=== PATIENT | male | born 1985 | race Caucasian/White ===

== ENCOUNTER 2020-03-10 19:42 | Emergency (ER) | payer BC, SELFPAY ==
[2020-03-10 19:53] VITALS: BP 146/96; PULSE 112; RESP 16; TEMP 36.9; O2SAT 99; BMI 46.1
--- NOTE | 2020-03-10 19:57 | XR_ITS ---
PROCEDURE: XR HAND RT MIN 3V CLINICAL INDICATION: FINGER INJURY Posttraumatic pain, laceration COMPARISON: No exams were available for comparison FINDINGS: Comminuted fracture involves the distal aspect of the distal phalanx of the 2nd finger. There is mild ulnar displacement of the distal fracture fragment. Soft tissue laceration is noted as well. IMPRESSION: Mildly displaced open comminuted fracture distal phalanx of the 2nd finger Dictated by: Warren Everett MD 03/10/2020 20:50 Electronically signed by Warren Everett MD in [place] 03/10/2020 20:50
--- NOTE | 2020-03-10 20:57 | HMH.EDWNDL ---
ED Disposition Clinical Impression: Laceration Open fracture of finger of right hand Qualifiers: Encounter type: initial encounter Finger: index finger Phalanx: distal Fracture alignment: nondisplaced Qualified Code(s): S62.660B - Nondisplaced fracture of distal phalanx of right index finger, initial encounter for open fracture Disposition: Home, Self-Care Condition on Discharge: Good Instructions: DI for Laceration Repair Additional Instructions: call dr martinez in am Prescriptions: cephALEXin [Keflex 500mg Cap] 500 mg PO TID #30 cap Transmission Status: Pending to [facility] #[id number] Referrals: Provider,MD Mayra [Primary Care Provider] - Yadira Martinez MD [Physician] - - Critical Care Critical Care Time: No Attestation: On 03/10/20, the high probability of a clinically significant, sudden or life threatening deterioration of the following system(s) required my full and direct attention, intervention and personal management. The time I documented below is in addition to time spent performing reported procedures but includes the following listed in this critical care notation. Medical Decision Making - Neo Inquiry Pt receiving controlled substance: No Vital Signs: 03/10/20 19:53 Temperature 98.5 F Temperature Source Oral Pulse Rate [Left Brachial] 112 H Respiratory Rate 16 Blood Pressure [Left Arm] 146/96 H Blood Pressure Mean [Left Arm] 112 Blood Pressure Source [Left Arm] Automatic Cuff Blood Pressure Position [Left Arm] Sitting 02 Sat by Pulse Oximetry 99 Oxygen Delivery Method Room Air Orders (Tests/Meds): ED MEDICATIONS Discontinued Medications Generic Name Dose Route Start Last Admin Trade Name Freq PRN Reason Stop Dose Admin Tetanus/Reduced Diphtheria/Acell Pertussis 0.5 ml 03/10/20 19:58 03/10/20 20:30 Adacel Tdap 0.5ml Syringe IM 03/10/20 19:59 0.5 ml .ONCE ONE Administration - Radiology Data #1 Image(s): Hand Image Reviewed: Yes I reviewed the patient's radiology image Preliminary Findings: Abnormal (fx seen) - Physician Consults Physician Consulted: lucy Reason -: Pt condition Wound/Laceration HPI - General Chief Complaint: Wound/Laceration Stated Complaint: AO [id number]@1900 lect to R hand Index Finger Time Seen by Provider: 03/10/20 20:00 Mode of Arrival: Ambulatory Source of Information: Patient, Medical Record Limitations: No Limitations Description of Symptoms (Recalled from ER Triage Doc. by RN): PATIENT REPORTS HE WAS TRIMMING BUSHES WHEN THE TRIMMERS KICKED BACK AND CUT HIS RIGHT POINTER FINGER. - History of Present Illness HPI narrative: distal rt index finger lac at home - no other c/o Onset (ago): hour(s) Extremity Location: Right: hand Place: home Patient tetanus UTD: No Context: sharp object use Associated symptoms: none - Related Data Previous Rx's Medication Instructions Recorded Ketorolac Tromethamine [Toradol 10 mg PO Q4H 5 Days #30 tab 02/06/20 10mg tablet] cephALEXin [Keflex 500mg Cap] 500 mg PO TID #30 cap 03/10/20 Allergies Allergy/AdvReac Type Severity Reaction Status Date / Time acetaminophen [From Lortab] Allergy Verified 02/06/20 18:11 hydrocodone [From Lortab] Allergy Verified 02/06/20 18:[address] [facility] History - Hepatitis A Screen Drug use history?: No High risk sexual behaviors?: No History of sexually transmitted infection?: No Currently employed?: No Childcare worker?: No Do you have indoor plumbing?: Yes Do you have electricity?: Yes Attestation statement:: This patient has been screened for Hepatitis A risk factors. I have reviewed the patient's past medical history: Yes - Social History Alcohol Intake: never Occupational Status: employed ROS Obtained: Yes All systems reviewed & no additional complaints - Constitutional Constitutional: Denies fever(s) - Eyes Eyes: Denies change in vision - ENT Ears, Nose, Mouth, and Throat: Denies sore t
[2020-03-10 21:39] VITALS: BP 140/89; PULSE 98; RESP 16; TEMP 36.9; O2SAT 99
== END 2020-03-10 21:43 | disposition home or self-care (01) ==
PROVIDERS: Emergency Provider Emergency Medicine
DX: S61.210A Laceration without foreign body of right index finger without damage to nail, initial encounter (principal); S62.660B Nondisplaced fracture of distal phalanx of right index finger, initial encounter for open fracture; W31.89XA Contact with other specified machinery, initial encounter; Y92.017 Garden or yard in single-family (private) house as the place of occurrence of the external cause; Z23 Encounter for immunization; Z88.5 Allergy status to narcotic agent
CPT/HCPCS: 12001; 73130; 90471; 90715; 99282

== ENCOUNTER → 2020-03-14 06:37 | Outpatient (CLI) | payer BC, SELFPAY ==
[2020-03-16 06:53] LABS: Covid-19 Nasal PCR Sendout Lex NOT DETECTED
== END ==
LOC: LAB 06:39
PROVIDERS: PCP Family Medicine; Visit Provider Orthopaedic Surgery
DX: S62.660B Nondisplaced fracture of distal phalanx of right index finger, initial encounter for open fracture (principal); Z03.818 Encounter for observation for suspected exposure to other biological agents ruled out
CPT/HCPCS: J2704; U0004

== ENCOUNTER 2020-03-16 06:54 | Day surgery (SDC) | payer BC, SELFPAY ==
[2020-03-14 06:36] VITALS: BMI 46.1
--- NOTE | 2020-03-14 06:39 | SUR.PREOP ---
Pt arrived Saturday morning at 6am for surgery. Pt was informed by Flash that surgery is scheduled for Saturday the . We called COVID nurse to set up his COVID swab testing and pt was registered and lab called for swab. Pt in preop waiting for lab to do swab
[2020-03-16 07:15] VITALS: BP 143/87; PULSE 83; RESP 18; TEMP 37.3; O2SAT 97
[2020-03-16 08:55] VITALS: BP 147/76; PULSE 76; RESP 18; TEMP 36.5; O2SAT 97
--- NOTE | 2020-03-16 10:03 | SUR.OPER ---
Foil used as implant for nail bed
--- NOTE | 2020-03-16 11:27 | HMH.OPNOTE ---
Date of procedure: 03/16/20 Pre-op Diagnosis:: R index finger injury with: 1) distal phalanx fracture 2) laceration of fingertip, suspect nail bed injury Post-op Diagnosis:: R index finger injury with: 1) distal phalanx fracture, open 2) nail bed injury 3) laceration of the nail plate and skin/soft tissue of finger tip Procedure performed:: RIGHT INDEX FINGER: 1) suture removal 2) irrigation and debridement 3) nail bed repair 4) fingertip laceration repair Surgeon:: Yadira Martinez MD Quality Lab Technician(s):: Jada Brown PET HANDLER:: Other (none; local case) Anesthesia: local (digital block) Estimated blood loss (mL): 5 Clinical Note:: 35yo right hand dominant bridget evaluated by myself in the office on 03/11/20 after an injury to the R index finger on 03/10/20. He was working with [employer] trimmers and accidentally caught the tip of his right index finger with the blades. He had immediate bleeding and pain, but does not recall seeing exposed bone or tendon. He presented to the ER at [facility], where the wound was irrigated and closed. A nail bed injury and exposed bone were documented but no nail bed repair performed. The skin was reapproximated with nylon sutures and dermabond, and the patient discharged with a prescription for keflex. His tetanus was updated as well. The patient denies fevers or chills at home, no redness around or drainage from the tip of the finger. At his visit 03/11/20, there was no clinical sign of infection; dressings were reapplied and instructions given on wound care. I recommended nail bed repair under sterile conditions, preferably within the next 3-5 days. The patient was in agreement with this plan, all questions were answered. I discussed the risks of the procedure, including bleeding, infection, persistent nail plate/bed pain, and the risk of the nail plate not growing back. The patient vocalized understanding and informed consent was obtained. Operative findings:: Complex laceration of right index finger tip, including stellate nail bed injury with exposed bone of distal phalanx. All tissues appeared healthy w/o sign of infection or wound necrosis. Operative note:: The patient was identified in preoperative holding and the right hand index finger marked by myself with marking pen. Informed consent was verified with the patient and all questions answered. He was then taken to the local procedure room where he remained on his cart in a Cortez stand used to support the right hand. 2 g Ancef were given intramuscularly by the nursing staff. Timeout was performed, identifying the correct patient, the correct procedure, and correct site. Digital nerve block was performed to the right index finger using 10 cc of local anesthetic, consisting of a mixture of 5 cc of 1% lidocaine without epinephrine and 5 cc of 0.5% Marcaine without epinephrine. This was done using aseptic technique. While the digital block took effect, the right hand and forearm was scrubbed with Hibiclens and the right hand prepped and draped in the usual sterile fashion for hand surgical procedure. I then performed a surgical scrub myself and donned sterile gloves and sterile gown. By this point the index finger was fully anesthetized. The ER repair of the fingertip consisted of 4-0 nylon with numerous sutures. This was then covered with a layer of Dermabond. Using an Adson forceps, the Dermabond was peeled off and all sutures removed. The laceration on the tip of the finger immediately opened up and was seen to be far more complex and initially suspected. The nailbed was completely transected, and was in fact a complex laceration pattern; I would classify this as a stellate pattern. There was an oblique laceration to the tip of the soft tissue of the finger, approximately 50% the fingertip diameter. The wound margins were sharp and the wound was clean without any contamination. There was exposed distal phalanx bone. The nail plate itself was completely
== END 2020-03-16 09:10 | disposition home or self-care (01) ==
PROVIDERS: PCP Family Medicine; Visit Provider Orthopaedic Surgery
PROC: (CPT 11010; principal; 2020-03-16 07:30)
DX: S62.630B Displaced fracture of distal phalanx of right index finger, initial encounter for open fracture (principal); Y92.017 Garden or yard in single-family (private) house as the place of occurrence of the external cause; W29.3XXA Contact with powered garden and outdoor hand tools and machinery, initial encounter
CPT/HCPCS: 11010

== ENCOUNTER → 2020-04-04 12:54 | Outpatient (CLI) | payer BC, SELFPAY ==
--- NOTE | 2020-04-04 13:04 | XR_ITS ---
PROCEDURE: XR HAND RT MIN 3V CLINICAL INDICATION: Rt index finger FX Follow-up fracture COMPARISON: XR HAND RT MIN 3V from 03/10/2020 FINDINGS: Comminuted fracture involves the mid and distal aspect of the distal phalanx of the 2nd digit. The fracture is not significantly displaced. No callus formation evident at this time. The joint spaces are well-preserved. No significant degenerative/arthritic changes. No erosive changes evident. Other findings:None. IMPRESSION: No change nondisplaced fracture of the distal phalanx of the index finger Dictated by: Warren Everett MD 04/04/2020 15:56 Electronically signed by Warren Everett MD in [place] 04/04/2020 15:56
== END ==
PROVIDERS: PCP Family Medicine; Visit Provider Orthopaedic Surgery
DX: S62.609B Fracture of unspecified phalanx of unspecified finger, initial encounter for open fracture (principal)
CPT/HCPCS: 73130

== ENCOUNTER → 2020-04-22 09:52 | Outpatient (CLI) | payer BC, SELFPAY ==
--- NOTE | 2020-04-22 10:02 | XR_ITS ---
PROCEDURE: XR HAND RT MIN 3V CLINICAL INDICATION: right index finger COMPARISON: XR HAND RT MIN 3V from 03/10/2020 FINDINGS: The linear oblique component of the fracture distal phalanx shows evidence of healing. However the transverse chip fracture at the tip of the distal phalanx is not definitely fused and the adjoining borders show mildly sclerotic appearance suggesting probable mild union of the terminal tuft fracture fragment. IMPRESSION: Interval healing of the fracture involving the distal phalanx, possible malunion developing of the terminal tuft fracture fragment Dictated by: Dr. Saran Avila MD 04/22/2020 10:[address] Saran Avila MD in [place] 04/22/2020 10:14
== END ==
PROVIDERS: PCP Family Medicine; Visit Provider Orthopaedic Surgery
DX: S62.660B Nondisplaced fracture of distal phalanx of right index finger, initial encounter for open fracture (principal)
CPT/HCPCS: 73130

== ENCOUNTER → 2020-05-06 10:22 | Outpatient (CLI) | payer BC, SELFPAY ==
--- NOTE | 2020-05-06 10:26 | XR_ITS ---
PROCEDURE: XR HAND RT MIN 3V CLINICAL INDICATION: right index finger fx; nail bed repair COMPARISON: XR HAND RT MIN 3V from 04/04/2020 XR HAND RT MIN 3V from 04/22/2020 FINDINGS: The complex fracture of the distal phalanx index finger is again noted. The oblique component shows mildly sclerotic borders similar to the transverse fracture through the terminal tuft. The appearance now suggests malunion of the complex fracture. No definite bony fusion is seen along the fracture lines. IMPRESSION: Possible malunion complex fractured distal phalanx index finger Dictated by: Dr. Saran Avila MD 05/06/2020 10:[address] Saran Avila MD in [place] 05/06/2020 10:47
== END ==
LOC: RAD 10:24
PROVIDERS: PCP Family Medicine; Visit Provider Orthopaedic Surgery
DX: S62.660B Nondisplaced fracture of distal phalanx of right index finger, initial encounter for open fracture (principal)
CPT/HCPCS: 73130

== ENCOUNTER 2020-11-07 10:28 | Emergency (ER) | payer BC, MEDICAID, SELFPAY ==
[2020-11-07 11:25] VITALS: BP 149/88; PULSE 76; RESP 19; TEMP 36.6; O2SAT 98; BMI 49.4
--- NOTE | 2020-11-07 11:44 | HMH.EDUTC ---
[facility] Disposition Clinical Impression: Canker sore Disposition: Home, Self-Care Condition on Discharge: Good Instructions: Canker Sores (Alternative Therapy), Aphthous Ulcers, DI for Aphthous Ulcers (Canker Sores) Additional Instructions: Continue using Milk of Mag on lesions Gargle warm salt water2-3 times daily to help with irritation and dry up the lesions Follow up with ENT as scheduled Return if needed Follow up with PCP Or dentist if no improvement Referrals: Gris Brown DO [Primary Care Provider] - Felix Leyva MD [Staff Physician] - 11/15/20 9:30 am Time of Disposition: 12:00 Medical Decision Making - Neo Inquiry Pt receiving controlled substance: No Neo was queried for this patient: No Vital Signs: 11/07/20 11:25 Temperature 97.8 F Temperature Source Oral Pulse Rate [Right Brachial] 76 Respiratory Rate 19 Blood Pressure [Right Arm] 149/88 H Blood Pressure Mean [Right Arm] 108 Blood Pressure Source [Right Arm] Automatic Cuff Blood Pressure Position [Right Arm] Sitting 02 Sat by Pulse Oximetry 98 Oxygen Delivery Method Room Air [facility] HPI - General Stated complaint: thrush in mouth Time Seen by Provider: 11/07/20 11:44 Mode of Arrival: Ambulatory Source of Information: Patient Limitations: No Limitations Description of Symptoms (Recalled from Triage Doc. by RN): PATIENT C/O THRUSH X 2 DAYS (HAD COVID 6 WEEKS AGO) HEENT Symptoms (Recalled from RN notes): No Resp Symptoms (Recalled from RN notes): No Skin Symptoms (Recalled from RN notes): No MS Symptoms (Recalled from RN notes): No Functional Status (Recalled from RN notes): WNL - History of Present Illness Provider Complaint: Patient states that he had COVID about a month ago States that over the last couple of days he started having some little blister like lesions on his tongue and inside of lower lip State that he came in to get it checked because someone told him he may have thrush - Related Data Home Medications Medication Instructions Recorded Confirmed citalopram 10 mg tablet 10 mg PO DAILY 03/11/20 05/06/20 lisinopril 10 mg tablet 10 mg PO DAILY 03/11/20 05/06/20 Previous Rx's Medication Instructions Recorded acetaminophen 300 mg-codeine 30 mg 1 tab PO TID PRN #20 tab 03/16/20 tablet sulfamethoxazole 800 1 tab PO BID 3 Days #6 tab 03/16/20 mg-trimethoprim 160 mg tablet Allergies Allergy/AdvReac Type Severity Reaction Status Date / Time acetaminophen [From Lortab] Allergy Verified 05/06/20 11:12 hydrocodone [From Lortab] Allergy Verified 05/06/20 11:12 - Worker's Comp Is this a Worker's Comp case?: No [facility] History - Hepatitis A Screen Drug use history?: No High risk sexual behaviors?: No History of sexually transmitted infection?: No Currently employed?: No Childcare worker?: No Do you have indoor plumbing?: Yes Do you have electricity?: Yes Attestation statement:: This patient has been screened for Hepatitis A risk factors. I have reviewed the patient's past medical history: Yes Medical History: Reports:: Anxiety, Depression, Hypertension Denies:: Cancer, Diabetes Mellitus Type 1, Diabetes Mellitus Type 2, Internal Pacemaker, MRSA, Seizures Other Medical History: Denies: Blood Transfusion Reaction Other Surgeries: Yes: No Previous Surgery. No: Pacemaker Amputation: No Fractures: No - Social History Smoking Status: Never smoker Alcohol Intake: never Occupational Status: other Housing: house Household Members: none - Psychiatric History Pschychiatric History:: Reports:: Anxiety, Depression Family Hx:: No significant family history ROS Obtained: Yes All systems reviewed & no additional complaints, Yes Systems reviewed as appropriate & no additional complaints - Constitutional Constitutional: Reports system reviewed and no additional complaints, except as docu - ENT Comments: blister like lesions in mouth - Respiratory Respiratory: Yes system reviewed and no ad
[2020-11-07 12:07] VITALS: BP 149/88; PULSE 76; RESP 16; TEMP 36.6; O2SAT 98
[2020-11-07 20:57] LABS: UTC Strep Screen (Rapid) Negative (Negative)
== END 2020-11-07 12:08 | disposition home or self-care (01) ==
PROVIDERS: Emergency Provider Nurse Practitioner; PCP Family Medicine
DX: B37.0 Candidal stomatitis (principal); K12.0 Recurrent oral aphthae; J35.8 Other chronic diseases of tonsils and adenoids; I10 Essential (primary) hypertension; F41.8 Other specified anxiety disorders; Z86.16 Personal history of COVID-19; Z88.5 Allergy status to narcotic agent; Z79.899 Other long term (current) drug therapy
CPT/HCPCS: 87880; 99202; G0463

== ENCOUNTER 2020-11-09 10:17 | Emergency (ER) | payer OTHER, SELFPAY ==
[2020-11-09 10:17] VITALS: BP 143/89; PULSE 90; RESP 14; TEMP 37; O2SAT 99; BMI 49.4
--- NOTE | 2020-11-09 10:57 | HMH.EDUTC ---
[facility] Clinical Impression: Viral syndrome Disposition: Home, Self-Care Condition on Discharge: Good Instructions: DI for Viral Syndrome, Preventing the Spread of Coronavirus Discharge Instructions Additional Instructions: Drink plenty of fluids. Take tylenol for pain or fever. Return if you begin to have difficulty breathing. Follow up with your regular doctor. GO TO THE ER FOR ANY WORSENING SYMPTOMS Prescriptions: Brompheniramine/Pseudoephed/Dm [Bromfed Dm Cough Syrup] 5 ml PO Q6HP PRN #240 syrup PRN Reason: Cough Transmission Status: Received by [facility] #[id number] Benzonatate [Tessalon Perle 100mg Cap] 100 mg PO TIDP PRN #30 cap PRN Reason: Cough Transmission Status: Received by [facility] #[id number] Referrals: Gris Brown DO [Primary Care Provider] - Time of Disposition: 11:11 Medical Decision Making - Medical Records Medical records reviewed: No: I reviewed the patient's medical records. - Neo Inquiry Pt receiving controlled substance: No Vital Signs: 11/09/20 10:17 11/09/20 11:06 Temperature 98.6 F 98.6 F Temperature Source Oral Oral Pulse Rate 90 Pulse Rate [Right] 90 Respiratory Rate 14 14 Blood Pressure 143/89 H Blood Pressure [Right Arm] 143/89 H Blood Pressure Mean [Right Arm] 107 02 Sat by Pulse Oximetry 99 - Lab Data Lab results reviewed: Yes: I reviewed the patient's lab results. Lab Results 11/09/20 11:14: Strep [facility] Negative Orders (Tests/Meds): ORDERS Category Date Time Status Strep Screen Confirmation Stat Micro 11/09/20 11:14 [place] [facility] - General Stated complaint: Cough, soa, headache Time Seen by Provider: 11/09/20 10:58 Mode of Arrival: Ambulatory Source of Information: Patient Limitations: No Limitations Description of Symptoms (Recalled from Triage Doc. by RN): requesting covid test. was positive 4-5 weeks ago. pt c/o SOA, fever HEENT Symptoms (Recalled from RN notes): No Resp Symptoms (Recalled from RN notes): Yes Skin Symptoms (Recalled from RN notes): No MS Symptoms (Recalled from RN notes): No Functional Status (Recalled from RN notes): wnl - History of Present Illness Provider Complaint: He states that he has felt very fatigued since he has covid-19 approx 6 weeks ago. He denies continued fever, but he has had continued fatigue, sore throat and generally feeling bad. His symptoms wax and wane. He would like to have a covid test to see if he is still positive to explain his symptoms. - Related Data Home Medications Medication Instructions Recorded Confirmed citalopram 10 mg tablet 10 mg PO DAILY 03/11/20 05/06/20 lisinopril 10 mg tablet 10 mg PO DAILY 03/11/20 05/06/20 Previous Rx's Medication Instructions Recorded acetaminophen 300 mg-codeine 30 mg 1 tab PO TID PRN #20 tab 03/16/20 tablet sulfamethoxazole 800 1 tab PO BID 3 Days #6 tab 03/16/20 mg-trimethoprim 160 mg tablet Benzonatate [Tessalon Perle 100mg 100 mg PO TIDP PRN #30 cap 11/09/20 Cap] Brompheniramine/Pseudoephed/Dm 5 ml PO Q6HP PRN #240 syrup 11/09/20 [Bromfed Dm Cough Syrup] Allergies Allergy/AdvReac Type Severity Reaction Status Date / Time acetaminophen [From Lortab] Allergy Verified 11/09/20 10:19 hydrocodone [From Lortab] Allergy Verified 11/09/20 10:19 - Worker's Comp Is this a Worker's Comp case?: No Is this an [facility] Worker's Comp?: No Is this a [facility] Worker's Comp?: No H History - Hepatitis A Screen Drug use history?: No High risk sexual behaviors?: No History of sexually transmitted infection?: No Currently employed?: No Childcare worker?: No Do you have indoor plumbing?: Yes Do you have electricity?: Yes Attestation statement:: This patient has been screened for Hepatitis A risk factors. I have reviewed the patient's past medical history: Yes Medical History: Reports:: Anxiety, Depression, Hypertension Denies:: Cancer, Diabetes Mellitus Type
[2020-11-09 11:06] VITALS: BP 143/89; PULSE 90; RESP 14; TEMP 37; O2SAT 99
[2020-11-09 11:16] LABS: UTC Strep Screen (Rapid) Negative (Negative)
== END 2020-11-09 11:21 | disposition home or self-care (01) ==
PROVIDERS: Emergency Provider Nurse Practitioner Family; PCP Family Medicine
DX: Z20.822 Contact with and (suspected) exposure to COVID-19 (principal); B34.9 Viral infection, unspecified; I10 Essential (primary) hypertension; F41.8 Other specified anxiety disorders; Z79.899 Other long term (current) drug therapy
CPT/HCPCS: 87880; 99202; G0463; U0003

== ENCOUNTER 2021-02-26 18:18 | Emergency (ER) | payer OTHER, SELFPAY ==
[2021-02-26 18:49] VITALS: BP 154/83; PULSE 99; RESP 16; TEMP 36.9; O2SAT 100; BMI 49.4
--- NOTE | 2021-02-26 18:58 | HMH.EDUTC ---
[facility] [place] Dis[place] Clinical Impression: Left maxillary sinusitis Left otitis media Qualifiers: Otitis media type: suppurative Chronicity: acute Recurrence: non-recurrent Spontaneous tympanic membrane rupture: without spontaneous rupture Qualified Code(s): H66.002 - Acute suppurative otitis media without spontaneous rupture of ear drum, left ear Disposition: Home, Self-Care Condition on Discharge: Good Instructions: DI for Sinusitis Prescriptions: Amoxicillin/Potassium Clav [Augmentin 875-125 Tablet] 1 tab PO Q12H 10 Days #20 tab Transmission Status: Pending to [facility] #[id number] predniSONE [Prednisone 20mg Tab] 20 mg PO BID 5 Days #10 tab Transmission Status: Pending to [facility] #[id number] Referrals: Gris Brown DO [Primary Care Provider] - Time of Disposition: 19:01 Medical Decision Making - Neo Inquiry Pt receiving controlled substance: No Vital Signs: 02/26/21 18:49 Temperature 980.4 F H Temperature Source Oral Pulse Rate [Left] 99 H Respiratory Rate 16 Blood Pressure [Right Arm] 154/83 H Blood Pressure Mean [Right Arm] 106 Blood Pressure Source [Right Arm] Automatic Cuff Blood Pressure Position [Right Arm] Sitting 02 Sat by Pulse Oximetry 100 Oxygen Delivery Method Room Air [facility] [place] HPI - General Stated complaint: head left side congestion Time Seen by Provider: 02/26/21 18:58 Mode of Arrival: Ambulatory Source of Information: Patient Limitations: No Limitations Description of Symptoms (Recalled from Triage Doc. by RN): Sinus infection HEENT Symptoms (Recalled from RN notes): No Resp Symptoms (Recalled from RN notes): Yes Skin Symptoms (Recalled from RN notes): No MS Symptoms (Recalled from RN notes): No Functional Status (Recalled from RN notes): wnl - History of Present Illness Provider Complaint: Left sided sinus pain and dental pain X 2-3 days. Has been using allergy meds, Neti pot without much relief. Denies ear pain or sore throat. Denies cough. Denies nausea or vomiting. Onset (ago): day(s) (3) Location: face Relieving factors: none Exacerbating factors: none Treatments prior to arrival: NSAID - Related Data Home Medications Medication Instructions Recorded Confirmed citalopram 10 mg tablet 10 mg PO DAILY 03/11/20 11/15/20 lisinopril 10 mg tablet 10 mg PO DAILY 03/11/20 11/15/20 Previous Rx's Medication Instructions Recorded acetaminophen 300 mg-codeine 30 mg 1 tab PO TID PRN #20 tab 03/16/20 tablet sulfamethoxazole 800 1 tab PO BID 3 Days #6 tab 03/16/20 mg-trimethoprim 160 mg tablet Benzonatate [Tessalon Perle 100mg 100 mg PO TIDP PRN #30 cap 11/09/20 Cap] Brompheniramine/Pseudoephed/Dm 5 ml PO Q6HP PRN #240 syrup 11/09/20 [Bromfed Dm Cough Syrup] Amoxicillin/Potassium Clav 1 tab PO Q12H 10 Days #20 tab 02/26/21 [Augmentin 875-125 Tablet] predniSONE [Prednisone 20mg 20 mg PO BID 5 Days #10 tab 02/26/21 Tab] Allergies Allergy/AdvReac Type Severity Reaction Status Date / Time acetaminophen [From Lortab] Allergy Verified 11/15/20 09:13 hydrocodone [From Lortab] Allergy Verified 11/15/20 09:13 - Worker's Comp Is this a Worker's Comp case?: No [facility] History - Hepatitis A Screen Drug use history?: No High risk sexual behaviors?: No History of sexually transmitted infection?: No Currently employed?: No Childcare worker?: No Do you have indoor plumbing?: Yes Do you have electricity?: Yes Attestation statement:: This patient has been screened for Hepatitis A risk factors. I have reviewed the patient's past medical history: Yes Medical History: Reports:: Anxiety, Depression, Hypertension Denies:: Cancer, Diabetes Mellitus Type 1, Diabetes Mellitus Type 2, Internal Pacemaker, MRSA, Seizures Other Medical History: Denies: Blood Transfusion Reaction Laterality Cases: Bilateral: Myringotomy (Ear Tubes) Other Surgeries: Yes: No Previous Surgery. No: Pacemaker Amputation: No Fractures: No - Social
[2021-02-26 19:14] VITALS: BP 154/83; PULSE 99; RESP 16; TEMP 36.9; O2SAT 100
== END 2021-02-26 19:15 | disposition home or self-care (01) ==
PROVIDERS: Emergency Provider Physician Assistant; PCP Family Medicine
DX: H66.002 Acute suppurative otitis media without spontaneous rupture of ear drum, left ear (principal)
CPT/HCPCS: 99202; G0463

== ENCOUNTER → 2021-11-21 14:15 | Outpatient (CLI) | payer BC, SELFPAY | PROVIDERS: PCP Family Medicine; Visit Provider Nurse Practitioner | DX: Z20.822 Contact with and (suspected) exposure to COVID-19 (principal) | CPT/HCPCS: C9803; U0003; U0005 ==

== ENCOUNTER 2022-06-11 14:30 | Emergency (ER) | payer BC, SELFPAY ==
[2022-06-11 15:10] VITALS: BP 149/86; PULSE 94; RESP 18; TEMP 37; O2SAT 96; BMI 52.1
--- NOTE | 2022-06-11 15:29 | HMH.EDUTC ---
[facility] – [place], [place] Disposition Clinical Impression: COVID-19 Disposition: Home, Self-Care Condition on Discharge: Good Instructions: DI for COVID-19 (Suspected or Confirmed ), Preventing the Spread of Coronavirus Discharge Instructions Additional Instructions: Drink plenty of fluids. Take tylenol or ibuprofen for pain or fever. Take the medications as directed. Follow up with your regular doctor. GO TO THE ER FOR ANY WORSENING SYMPTOMS Prescriptions: Benzonatate [Benzonatate 100mg cap] 100 mg PO TIDP PRN #30 cap PRN Reason: Cough Transmission Status: Received by [facility] #[id number] methylPREDNISolone [Medrol] 4 mg PO DIRECTED 6 Days #21 packet Transmission Status: Received by [facility] #[id number] Nirmatrelvir/Ritonavir [Paxlovid 2X150 mg-100 mg (Eua)] 1 packet PO DIRECTED 5 Days #1 packet Transmission Status: Received by [facility] #[id number] Azithromycin [Z-Shahab 250mg Tab*] 250 mg PO UD DOSE PK #6 tab Transmission Status: Received by [facility] #[id number] Referrals: Gris Brown DO [Primary Care Provider] - Forms: Work/School Release Time of Disposition: 15:46 Medical Decision Making - Medical Records Medical records reviewed: No: I reviewed the patient's medical records. - Neo Inquiry Pt receiving controlled substance: No Vital Signs: 06/11/22 15:10 06/11/22 15:49 Temperature 98.6 F 98.6 F Temperature Source Oral Pulse Rate 94 H Pulse Rate [Left] 94 H Respiratory Rate 18 18 Blood Pressure 149/86 H Blood Pressure [Right Arm] 149/86 H Blood Pressure Mean [Right Arm] 107 02 Sat by Pulse Oximetry 96 [facility] – [place], [place] HPI - General Stated complaint: covid pos 06/10, soa Time Seen by Provider: 06/11/22 15:29 Mode of Arrival: Ambulatory Source of Information: Patient Limitations: No Limitations Description of Symptoms (Recalled from Triage Doc. by RN): patient comes in with complaints of covid positive saturday morning. symptoms include headache, congestion, ears, cough. HEENT Symptoms (Recalled from RN notes): Yes Resp Symptoms (Recalled from RN notes): Yes Skin Symptoms (Recalled from RN notes): No MS Symptoms (Recalled from RN notes): No Functional Status (Recalled from RN notes): n/a - History of Present Illness Provider Complaint: He states that he tested positive for covid-19 around 36 hours ago. He is having chest congestion, fever, chills, body aches, and sore throat. He has had covid-19 two other times, but he states that he feels worse with this episode than the previous ones. - Related Data Home Medications Medication Instructions Recorded Confirmed lisinopril 10 mg tablet 10 mg PO DAILY 03/11/20 11/15/20 Previous Rx's Medication Instructions Recorded Azithromycin [Z-Shahab 250mg Tab*] 250 mg PO UD DOSE PK #6 tab 06/11/22 Benzonatate [Benzonatate 100mg 100 mg PO TIDP PRN #30 cap 06/11/22 cap] Nirmatrelvir/Ritonavir [Paxlovid 1 packet PO DIRECTED 5 Days #1 06/11/22 2X150 mg-100 mg (Eua)] packet methylPREDNISolone [Medrol] 4 mg PO DIRECTED 6 Days #21 06/11/22 packet Allergies Allergy/AdvReac Type Severity Reaction Status Date / Time acetaminophen [From Lortab] Allergy Verified 06/11/22 15:14 hydrocodone [From Lortab] Allergy Verified 06/11/22 15:14 - Worker's Comp Is this a Worker's Comp case?: No [facility] History - Hepatitis A Screen Attestation statement:: This patient has been screened for Hepatitis A risk factors. I have reviewed the patient's past medical history: Yes Medical History: Reports:: Anxiety, Depression, Hypertension Denies:: Cancer, Diabetes Mellitus Type 1, Diabetes Mellitus Type 2, Internal Pacemaker, MRSA, Seizures Other Medical History: Denies: Blood Transfusion Reaction Laterality Cases: Bilateral: Myringotomy (Ear Tubes) Other Surgeries: Yes: No Previous Surgery. No: Pacemaker Amputation: No Fractures: No - Social History Smoking Status: Never smoker Alcohol Intake: n
[2022-06-11 15:49] VITALS: BP 149/86; PULSE 94; RESP 18; TEMP 37
== END 2022-06-11 15:53 | disposition home or self-care (01) ==
PROVIDERS: Emergency Provider Nurse Practitioner Family; PCP Family Medicine
DX: U07.1 COVID-19 (principal); J02.9 Acute pharyngitis, unspecified; H83.8X3 Other specified diseases of inner ear, bilateral; R06.02 Shortness of breath; R51.9 Headache, unspecified; I10 Essential (primary) hypertension; F32.A Depression, unspecified; F41.9 Anxiety disorder, unspecified; Z79.52 Long term (current) use of systemic steroids; Z88.5 Allergy status to narcotic agent; Z88.6 Allergy status to analgesic agent
CPT/HCPCS: 99213; G0463

== ENCOUNTER 2024-06-14 16:39 | Emergency (ER) | payer OTHER, SELFPAY ==
[2024-06-14 16:45] VITALS: BP 151/90; PULSE 111; RESP 19; TEMP 37.2; O2SAT 98; BMI 55.4
[2024-06-14] MEDS: BELLADONNA ALKALOIDS 60 ML ML PO (17:04)
--- NOTE | 2024-06-14 17:24 | ED_ITS ---
Discharge Plan Disposition Patient Disposition: Home, Self-Care Condition: Good Prescriptions Prescriptions: New omeprazole 40 mg capsule,delayed release(DR/EC) 40 mg PO DAILY 14 Days Qty: 14 0RF sucralfate [Carafate] 100 mg/mL suspension 5 ml PO QID PRN (Reason: acid reflux) 10 Days Qty: 200 0RF Rx Instructions: swish in mouth and swallow; use after food/drink famotidine 20 mg tablet 20 mg PO BID 10 Days Qty: 20 0RF No Action lisinopril 10 mg tablet 10 mg PO DAILY Referrals Follow up/Referrals: Gris Brown DO [Primary Care Provider] - See instructions Activity Restrictions/Add. Instructions Additional Instructions/Restrictions: Drink plenty of fluids. Take the medications as directed. Follow up with your regular doctor. GO TO THE ER FOR ANY WORSENING SYMPTOMS Clinical Impressions Clinical Impression: Acute epigastric pain, Abdominal pain Stand Alone Forms Stand Alone Forms: Work/School Release Instructions Patient Instructions: DI for Epigastric Pain, Sucralfate, Omeprazole Print Language Print Language: Macedonian Discharge ED Provider: Girish Schaeffer [facility] General Stated complaint: lower abd pain, nausea Mode of Arrival: Ambulatory Source of Information: Patient Limitations: No Limitations Time Seen by Provider: 06/14/24 17:24 Description of Symptoms (Recalled from Triage Doc. by RN): PATIENT C/O MID ABDOMINAL PAIN. HE STATES NOTHING SPECIFIC CAUSES THE PAIN. PATIENT ALSO REPORTS HAVING DIARRHEA YESTERDAY, DENIES ANY DIARRHEA TODAY. HE STATES THAT TODAY HE HAS BEEN BELCHING ACID. PATIENT DENIES ANY VOMITING HEENT Symptoms (Recalled from RN notes): No Resp Symptoms (Recalled from RN notes): No Skin Symptoms (Recalled from RN notes): No MS Symptoms (Recalled from RN notes): No Functional Status (Recalled from RN notes): WNL History of Present Illness Provider Complaint: He states that for the past few days he has had frequent episodes of heart burn and epigastric pain. He denies any chest pain and shortness of breath. Related Data Home Medications ?Medication ?Instructions ?Recorded ?Confirmed lisinopril 10 mg tablet 10 mg PO DAILY Hypertension 03/11/20 06/14/24 Previous Rx's ?Medication ?Instructions ?Recorded famotidine 20 mg tablet 20 mg PO BID 10 days #20 tabs 06/14/24 omeprazole 40 mg capsule,delayed 40 mg PO DAILY 14 days #14 caps 06/14/24 release sucralfate 100 mg/mL oral 5 ml PO QID PRN acid reflux 10 06/14/24 suspension (Carafate) days #200 mL Allergies Allergy/AdvReac Type Severity Reaction Status Date / Time acetaminophen [From Lortab] Allergy Verified 06/11/22 15:14 hydrocodone [From Lortab] Allergy Verified 06/11/22 15:14 Worker's Comp Is this a Worker's Comp case?: No [facility] Disclaimer: The information contained in this section may have been updated after the patient was seen, as this information can be updated by other users. Medical History (Updated 06/14/24 @ 18:30 by Girish Schaeffer APRN) Anxiety Urinary tract infection Kidney stone Hypertension Surgical History (Updated 06/14/24 @ 16:59 by Carla Escudero RN) History of tympanostomy tube placement Social History Smoking Status: Never smoker second hand exposure: No alcohol intake: never current occupational status: other Travel in the last 8 weeks: None household members: none housing: house current occupation: [employer] caffeine: Yes ROS Obtained: Yes All systems reviewed & no additional complaints except as documented Constitutional Constitutional: Denies chills and Denies fever(s) Eyes Eyes: Denies eye discharge ENT Ears, Nose, Mouth, and Throat: Denies dizziness, Denies otalgia and Denies sore throat Cardiovascular Cardiovascular: Reports as per HPI and Denies chest pain Respiratory Respiratory: Denies shortness of breath, Denies chest congestion, Denies cough, Denies stridor and Denies wheezing Gastrointestinal Gastrointestingal: Reports as per HPI; Denies abdominal pain, nausea or vomiting Musculoskeletal Musculoskeletal: Reports system reviewed and no additional complaints, except as documented and Denies arthralgias Integumentary/Breasts Skin/Breast: Denies rash Neurologic Neurologic: Denies dizziness and Denies paresthesias Allergic/Immunologic Allergic/Immunologic: Denies wheezing Physical Exam General General appearance: alert and in no apparent distress Head Head exam: atraumatic, normocephalic and normal inspection Eye Eye exam: Present normal appearance, PERRL and EOMI ENT ENT exam: Present normal exam, normal oropharynx, mucous membranes moist, TM's normal bilaterally and normal external ear exam Neck Neck exam: Present normal inspection, full ROM and trachea midline; Absent meningismus or lymphadenopathy Chest Chest inspection: Present normal inspection and symmetric chest wall rise; Absent tenderness Respiratory Respiratory exam: Present normal lung sounds bilaterally; Absent respiratory distress Cardiovascular Cardiovascular exam: Present regular rate and normal rhythm; Absent JVD Abdominal Exam Abdominal exam: Present soft and hyperactive bowel sounds; Absent distention, tenderness, guarding, psoas sign, obturator sign, heel tap sign, Rebolledo's sign, Rovsing's sign or tenderness at McBurney's Point Extremities Exam Extremities exam: Present normal inspection, full ROM and normal capillary refill; Absent calf tenderness Back Exam Back exam: Present normal inspection; Absent tenderness Neurological Exam Neurological exam: Present alert and oriented X3 Psychiatric Psychiatric exam: Present normal affect and normal mood Skin Skin exam: Present warm, dry, intact and normal color Lymphatic Lymphatic Findings: no adenopathy Medical Decision Making Medical Records Medical records reviewed: No I reviewed the patient's medical records. Eno Inquiry Pt receiving controlled substance: No Vital Signs: 06/14/24 16:45 Temperature 98.9 F Temperature Source Oral Pulse Rate [Left Brachial] 111 H Respiratory Rate 19 Blood Pressure [Left Arm] 151/90 H Blood Pressure Mean [Left Arm] 110 Blood Pressure Source [Left Arm] Automatic Cuff Blood Pressure Position [Left Arm] Sitting 02 Sat by Pulse Oximetry 98 Lab Data Lab results reviewed: Yes I reviewed the patient's lab results. 06/14/24 17:45 06/14/24 17:45 Orders (Tests/Meds): ED MEDICATIONS Generic Name Dose Route Start Last Admin Trade Name Freq PRN Reason Stop Dose Admin Belladonna Alkaloids 60 ml 06/14/24 16:57 06/14/24 17:04 Belladonna Alkaloids 60 Ml Ml PO 06/14/24 16:58 60 ml ONCE ONE Administration
[2024-06-14 17:59] LABS: Albumin Level 4.2 g/dl (3.5-5.0); Chloride 108 mmol/L (98-107); Potassium 4.3 mmoL/L (3.5-5.1); Sodium 140 mmol/L (136-145)
[2024-06-14 18:01] LABS: Amylase 55 U/L (30-110); Basophils # 0.1 K/mm3 (0-0.2); Basophils % 0.7 % (0.1-2.0); Eosinophils # 0.2 K/mm3 (0.0-0.4); Eosinophils % 1.8 % (0.1-12.0); Hemoglobin 15.5 g/dL (14.1-18.0); Lymphocytes # 2.4 K/mm3 (0.7-4.5); Lymphocytes % 19.3 % (10-50); Mean Corpuscular HGB Conc 31.7 g/dL (31.8-35.4); Mean Corpuscular Hemoglobin 29.9 pg (27.0-31.2); Mean Corpuscular Volume 94.6 fl (80-94); Mean Platelet Volume 7.9 fl (7.4-10.4); Monocytes # 0.7 K/mm3 (0.1-1.0); Monocytes % 5.8 % (1.7-9.3); Neutrophils % 72.4 % (37.0-80.0); Platelet Count 339 K/mm3 (142-424); Red Blood Count 5.18 M/mm3 (4.60-6.20); Red Cell Distribution Width 14.4 % (11.5-17.5); White Blood Count 12.4 K/mm3 (4.8-10.8)
[2024-06-14 18:02] LABS: Alanine Aminotransferase 34 U/L (12-78); Albumin/Globulin Ratio 1.2 (1.1-1.8); Alkaline Phosphatase 56 U/L (38-126); Anion Gap 9.3 mEq/L (5-15); Aspartate Amino Transferase 29 U/L (17-59); Bilirubin,Total 0.6 mg/dl (0.2-1.3); Blood Urea Nitrogen 15 mg/dl (9-20); Calcium 9.1 mg/dl (8.4-10.2); Carbon Dioxide 27 mmol/L (22.0-30.0); Creatinine Clearance Estimated 113 mL/min (50-200); Estimated Glomerular Filt Rate 84 ml/min (>60); GFR (African American) 101 ML/MIN (>60); Globulin 3.5 g/dL (1.3-3.2); Glucose 91 mg/dl (74-100); Lipase 65 U/L (23-300); Total Protein,Serum 7.7 g/dl (6.3-8.2)
[2024-06-14 18:31] VITALS: BP 151/90; PULSE 111; RESP 19; TEMP 37.2; O2SAT 98
== END 2024-06-14 18:35 | disposition home or self-care (01) ==
PROVIDERS: Emergency Provider Nurse Practitioner Family; PCP Family Medicine
DX: R10.13 Epigastric pain (principal); K21.9 Gastro-esophageal reflux disease without esophagitis; R11.0 Nausea
CPT/HCPCS: 36415; 80053; 82150; 83690; 85025; 99212; 99214; G0463